=== PATIENT | male | born 1955 | race Caucasian/White ===

== ENCOUNTER 2022-06-24 19:23 | Emergency (ER) | payer MEDICAID ==
[~2022-06-24] VITALS: Ht 185.4 cm; Wt 70.3 kg
[2022-06-24 19:24] VITALS: BP 156/104
--- NOTE | 2022-06-24 19:28 | NUR ---
PT NANCI ALS. TAKEN TO BED 2
--- NOTE | 2022-06-24 19:30 | NUR ---
Pt resting in gurney, safety maintained with seizure precaution pads in place, IV patent. Patient turned and supported with pillow. Pt chest rise and fall symmetrical, no s/s of distress.
--- NOTE | 2022-06-24 19:31 | NUR ---
Dr. Morrison examining patient.
[2022-06-24] MEDS ORDERED: NALOXONE 0.4 MG/ML VIAL IVP ONE (19:35)
--- NOTE | 2022-06-24 20:37 | NUR ---
PT RETURN FROM CT
[2022-06-24 20:54] LABS: ALBUMIN 4.6 g/dL (3.4-5.0); ANION GAP 20.3 (8-16); ASPARTATE AMINOTRANSFERASE 33 U/L (15-37); CARBON DIOXIDE 24.7 mmol/L (21-32); CHLORIDE 104 mmol/L (98-107); CREATININE 1.2 mg/dL (0.6-1.3); GFR ARICAN-AMERICAN 77 mL/min (>90); GLUCOSE 113 mg/dL (74-106); SODIUM SERUM 144 mmol/L (136-145); TOTAL BILIRUBIN 1.1 mg/dL (0.0-1.0); UREA NITROGEN, BLOOD 21 mg/dL (7-18)
[2022-06-24] MEDS ORDERED: NACL 0.9% 1,000 ML IV ONE (21:25)
[2022-06-24] MEDS ORDERED: levETIRAcetam 1,000 MG in NACL 0.9% 100 ML IV ONE (22:10)
[2022-06-24] MEDS ORDERED: KEP500 PO (22:23)
[2022-06-24] MEDS ORDERED: levETIRAcetam 100 MG/ML VIAL IV ONE (22:38)
[2022-06-24 23:02] LABS: APPEARANCE,URINE CLEAR (CLEAR); BILIRUBIN,URINE NEGATIVE (NEGATIVE); BLOOD, URINE 1+ (NEGATIVE); COLOR,URINE YELLOW (YELLOW); LEUKOCYTE ESTERASE ,URINE NEGATIVE (NEGATIVE); NITRITE, URINE NEGATIVE (NEGATIVE); UGLUCOSE NEGATIVE (NEGATIVE)
[2022-06-24 23:11] LABS: BARBITURATE, URINE NEGATIVE ng/ml (NEG <=200); BENZODIAZEPINE, URINE POSITIVE ng/mL (NEG <=200); CANNABINOID, URINE NEGATIVE ng/mL (NEG <=50); COCAINE, URINE NEGATIVE ng/mL (NEG <=300); OPIATE, URINE NEGATIVE ng/mL (NEG <=2000); PHENCYCLIDINE SCREEN,URINE NEGATIVE ng/mL (NEG <=25)
[2022-06-24 23:12] LABS: RBC,URINE 11-20 (MOD) /HPF (0-5); WBC,URINE 16-25 (MOD) /HPF (0-5)
[2022-06-24 23:34] LABS: BASOPHILS % (AUTO) 0.3 % (0.0-2.0); HEMATOCRIT 37.5 % (36-52); HEMOGLOBIN 12.5 g/dL (12.0-18.0); LYMPHOCYTES # (AUTO) 0.7 K/uL (2.0-11.5); MEAN CORPUSCULAR HEMOGLOBIN 34 pg (27-31); MEAN CORPUSCULAR HGB CONC 33 g/dL (33-37); MEAN CORPUSCULAR VOLUME 103.4 fL (80-94); MONOCYTES # (AUTO) 0.5 K/uL (0.8-1.0); MONOCYTES % (AUTO) 5.3 % (1.7-9.3); NEUTROPHILS % (AUTO) 86.4 % (42.2-75.2); PLATELET COUNT (AUTO) 122 K/uL (140-450); RED BLOOD CELL COUNT(AUTO) 3.63 MIL/uL (4.20-6.10); RED CELL DISTRIBUTION WIDTH 14.5 % (11.6-13.7); WHITE BLOOD COUNT (AUTO) 9.3 K/uL (4.8-10.8)
[2022-06-25] MEDS ORDERED: hydrALAZINE 20 MG/ML VIAL IVP ONE ×2 (02:45→03:35)
[2022-06-25] MEDS ORDERED: hydrALAZINE 20 MG/ML VIAL IVP SCH (02:45)
--- NOTE | 2022-06-25 03:50 | NUR ---
[facility] called and report given to Voice Teacher Libia STEVE. Voice Teacher Libia STEVE verbalized understanding of report, no further questions.
--- NOTE | 2022-06-25 05:15 | NUR ---
Patient to be transferred to [facility]. Is being transferred due to insurance. Receiving facility has accepting physician and available space. ER physician has signed transfer form. Patient transfer form signed by two RNs due to patient being confused. Patient belongings inventoried and will be sent with patient. Copy of nursing notes, lab reports, EKG, Physicians Orders and X-rays to be sent with patient. Report called to Libia STEVE at receiving facility.
--- NOTE | 2022-06-25 05:28 | NUR ---
[facility] TRANSPORT AT BEDSIDE
--- NOTE | 2022-06-25 05:41 | NUR ---
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 [facility] Building Construction Foreman Libia RN updated on recent vitals, [facility] Supervisor Libia RN verbalized understanding. Report verbally given to Jacquard Loom Card Changer Colby. Jacquard Loom Card Changer Colby verbalized understanding of report, no further questions, VSS, skin intact. Patient safely transferred to vehicle for transport to [facility], IV intact, skin intact, patient does not disply s/s of discomfort or distress.
[2022-06-25 05:51] VITALS: BP 158/94
--- NOTE | 2022-06-25 06:16 | NUR ---
PT TAKEN BY TRANSPORT
== END 2022-06-25 06:16 | disposition short-term general hospital (02) ==
LOC: MED 19:23
DX: R41.82 Altered mental status, unspecified (principal); Z20.822 Contact with and (suspected) exposure to COVID-19; R56.9 Unspecified convulsions; Z79.899 Other long term (current) drug therapy
CPT/HCPCS: 36415; 70450; 71045; 80053; 80305; 81001; 83605; 84484; 85025; 87086; 87426; 93005; 96361; 96365; 96375; 99285; J0360; J1953; J2310; J7030